=== PATIENT | female | born 1945 ===

== ENCOUNTER 2017-06-13 10:47 | Emergency (ER) | payer OTHER ==
[~2017-06-13] VITALS: Ht 154.9 cm; Wt 73.5 kg
[~2017-06-13 10:47] MED LIST: TOBREX5 ML OP
[2017-06-13] MEDS ORDERED: COZAAR25 MG (11:01)
== END 2017-06-13 13:33 | disposition home or self-care (01) ==
LOC: ER 10:47
DX: R07.89 Other chest pain (principal); F41.9 Anxiety disorder, unspecified

== ENCOUNTER 2017-06-15 14:17 | Emergency (ER) | payer OTHER ==
[~2017-06-15] VITALS: Ht 152.4 cm; Wt 78.9 kg
[~2017-06-15 14:17] MED LIST changes: +COZAAR25 MG
== END 2017-06-15 17:10 | disposition home or self-care (01) ==
LOC: ER 14:17
DX: N39.0 Urinary tract infection, site not specified (principal)

== ENCOUNTER 2020-07-10 15:10 | Outpatient (CLI) | payer OTHER | END 2020-07-10 15:38 | disposition home or self-care (01) | LOC: NUCLEAR 15:10 | PROVIDERS: ATTEND Psychiatry & Neurology Clinical Neurophysiology | DX: I82.493 Acute embolism and thrombosis of other specified deep vein of lower extremity, bilateral (principal) ==